=== PATIENT | female | born 1950 | race Caucasian/White ===

== ENCOUNTER → 2016-10-11 | Day surgery (SDC) | payer BC ==
[~2016-10-11] MED LIST: 24 HOUR ALLER15.8 ML; AMITRYPTYLINE PO; CITALOPRAM HBR40 MG PO; CLARITIN10 M2 PO; CYMBALTA PO; FERROUS GLUCON324 MG PO; GLUCOPHAGE500 MG PO; GLUCOTROL PO; GLUCOTROL XL PO; HYDROCODON-ACE1 EAC5 PO; LATANOPROST2.5 ML OU; LEVEMIR100 UNITS/ SUBQ; LEVOXYL100 MCG PO; NEURONTIN300 MG PO; NOVOLIN N100 UNIT/1 SUBQ; NOVOLIN R100 UNITS/; OMEPRAZOLE20 M2 PO; OXYCONTIN20 MG PO; PERCOCET10 PO; PREMARIN0.3 MG PO; PRILOSEC20 MG PO; PRINIVIL20 M1 PO; PROZAC PO; RANITIDINE HCL150 M1 PO; SKELAXIN PO; ULTRAM PO; ZOCOR PO
--- NOTE | ~2016-10-11 | OR ---
Unit #: [id number] #: [id number] Patient: ZAC VARGAS [id number] [address] [address] [id number] O MR#: [id number] NAME: ZAC VARGAS ROOM: Date of Procedure: 10/11/2016 Admission Date: 10/11/2016 Surgeon: Maik Mendoza M.D. : 1950 Attending Physician: Maik Mendoza M.D. Primary Care Physician: Tisha Davis Aprn OPERATIVE REPORT PREOPERATIVE DIAGNOSES 1. Herniated nucleus pulposus. 2. Radiculopathy. POSTOPERATIVE DIAGNOSES 1. Herniated nucleus pulposus. 2. Radiculopathy. PROCEDURE PERFORMED Transforaminal epidural steroid injection with intravenous sedation and fluoroscopic guidance for needle localization. INDICATIONS FOR PROCEDURE The patient is a 65-year-old female with return of left lower extremity pain due to known left-sided disk herniation at L5-S1 level. She did extremely well with a single transforaminal epidural steroid injection about 5 months ago. She had return of the pain. Plan is to repeat that injection at this point. She has chronic back and right lower extremity pain due to nonsurgical pathology that done well with translaminar epidurals in the past. The translaminar did not help the left in the past. She may require repeat injection in the low back as well. Last injections they were done greater than 6 months ago. DESCRIPTION OF PROCEDURE The patient was placed in a prone position. Standard monitors were applied. 2 mg of Versed were given for sedation and anxiolysis, which were adequate. Vital signs remained stable. Sterile prep and drape then of the lumbar area was performed. The skin then at the L5-S1 level was localized with 1% lidocaine to the left of midline. After confirming proper positioning with fluoroscopy and radiographic contrast, 80 mg of Depo-Medrol and 1 mL of 0.25% bupivacaine were deposited. The patient tolerated the procedure otherwise well and was discharged to recovery room in stable condition. Dictated by... Livia Londono/deshawn TD: 10/11/2016 23:33 JOB #: [id number] Unit #: [id number] #: [id number] Patient: ZAC VARGAS OPERATIVE REPORT Page 1 of 1 X Maik Mendoza MD X PROCEDURE OPERATIVE NOTE
== END | disposition home or self-care (01) ==
LOC: CCSC 09:53
DX: M51.17 Intervertebral disc disorders with radiculopathy, lumbosacral region (principal); I10 Essential (primary) hypertension; E11.9 Type 2 diabetes mellitus without complications; K21.9 Gastro-esophageal reflux disease without esophagitis
CPT/HCPCS: 82947; J1040; J2250

== ENCOUNTER → 2016-12-06 | Day surgery (SDC) | payer MEDICARE ==
--- NOTE | ~2016-12-06 | OR ---
Unit #: [id number] #: [id number] Patient: ZAC VARGAS [id number] [address] [place], [place] [address] [id number] O MR#: [id number] NAME: ZAC VARGAS ROOM: Date of Procedure: 12/06/2016 Admission Date: 12/06/2016 Surgeon: Maik Mendoza M.D. : 1950 Attending Physician: Maik Mendoza M.D. Primary Care Physician: Tisha Davis Aprn OPERATIVE REPORT PREOPERATIVE DIAGNOSES Herniated nucleus pulposus and radiculopathy. POSTOPERATIVE DIAGNOSES Herniated nucleus pulposus and radiculopathy. PROCEDURE PERFORMED Transforaminal epidural steroid injection with intravenous sedation and fluoroscopic guidance for needle localization. INDICATIONS FOR PROCEDURE The patient is a 66-year-old female with significant left lower extremity pain due to new left-sided disk herniation at the L5-S1 level. She has chronic back and right lower extremity pain from prior issues. Single transforaminal injection is very very helpful back in May for about 4 months. She had resurgence of the pain. Repeat injection was done, but did not work nearly as well. Plan is to repeat an injection based on her pathology, symptomatology, and treatment options, and strong desire to avoid surgery. DESCRIPTION OF PROCEDURE The patient was placed in a prone position. Standard monitors were applied. 2 mg of Versed were given for sedation and anxiolysis, which were adequate. Vital signs remained stable. Sterile prep and drape then of the lumbar area was performed. The skin then to the left of midline at the L5 level was localized with 1% lidocaine. A long 22-gauge Quincke point spinal needle was then advanced with biplanar fluoroscopic guidance to bring the needle tip within the left L5-S1 neural foramina. The patient had mild paresthesia, which resolved with manipulation of the needle. After confirming proper positioning with biplanar fluoroscopy and radiographic contrast, a dose of 80 mg of Depo-Medrol and 1 mL of 0.25% bupivacaine were deposited. The patient tolerated the procedure otherwise well and was discharged to recovery room in stable condition. Dictated by... Livia Londono/deshawn TD: 12/07/2016 02:49 Unit #: [id number] #: [id number] Patient: ZAC VARGAS Jose Luis JOB #: [id number] OPERATIVE REPORT Page 1 of 1 X Maik Mendoza MD X PROCEDURE OPERATIVE NOTE
== END | disposition home or self-care (01) ==
LOC: CCSC 10:39
DX: M51.17 Intervertebral disc disorders with radiculopathy, lumbosacral region (principal); E11.9 Type 2 diabetes mellitus without complications; Z79.4 Long term (current) use of insulin; I10 Essential (primary) hypertension; K21.9 Gastro-esophageal reflux disease without esophagitis
CPT/HCPCS: 82947; J1040; J2250